=== PATIENT | female | born 2000 | race Hispanic/Latino ===

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

== ENCOUNTER 2019-09-29 21:40 | Emergency (ER) | payer OTHER ==
[2019-09-29 22:19] LABS: Absolute Lymphocytes (CBC) 2.1 K/uL (0.7-4.9); Basophils % 0.4 % (0-1.3); Hematocrit 36.3 % (36.0-45.0); Lymphocytes % 13.2 % (15.3-44.8); MPV 10.8 fL (7.6-11.3); RBC Red Blood Cell Count 3.88 M/uL (3.86-4.86)
[2019-09-29 22:30] LABS: ALT/SGPT 32 U/L (12-78); AST/SGOT 30 U/L (15-37); Albumin 3.9 g/dL (3.4-5.0); Alkaline Phosphatase 79 U/L (45-117); BUN Blood Urea Nitrogen 13 mg/dL (7-18); Bicarbonate 26 mmol/L (21-32); Bilirubin Direct 0.2 mg/dL (0-0.2); Bilirubin Total 0.7 mg/dL (0.2-1.0); Glucose Level 106 mg/dL (74-106); Lipase 66 U/L (73-393); Potassium 3.3 mmol/L (3.5-5.1); Protein, Total 7.3 g/dL (6.4-8.2); Sodium Level 137 mmol/L (136-145)
[2019-09-29 22:45] LABS: Urine Blood NEGATIVE (NEG); Urine Glucose NEGATIVE (NEG); Urine Protein NEGATIVE (NEG); Urine pH 8.5 (5.0-7.0)
[2019-09-29] MEDS ORDERED: ONDANSETRON 4 MG/2 ML VIAL ONE (23:42)
[2019-09-29] MEDS ORDERED: MORPHINE 4 MG/ML SYR ONE (23:42)
--- NOTE | 2019-09-30 02:34 | EDPHYS ---
Physician Documentation [facility] Name: Linnea Perales Age: 19 yrs Sex: Female : 2000 Arrival Date: 09/29/2019 Time: 21:46 Bed 14 Private MD: ED Physician Lester Ambrose HPI: 09/30 02:13 This 19 yrs old Female presents to ER via Wheelchair with complaints of tw4 Abdominal Pain. 02:13 The patient presents with abdominal pain. The patient presents with abdominal pain tw4 right lower quadrant. 02:23 Onset: The symptoms/episode began/occurred 3 day(s) ago. The symptoms do not radiate. tw4 Associated signs and symptoms: Pertinent positives: nausea. The symptoms are described as sharp. Modifying factors: The symptoms are alleviated by remaining still, the symptoms are aggravated by movement, pressure. Severity of pain: At its worst the pain was moderate in the emergency department the pain is unchanged. The patient has not experienced similar symptoms in the past. 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 - Social history:: Smoking status: Patient uses tobacco products, denies chronic smoking, but will smoke occasionally. - Ebola Screening: : No symptoms or risks identified at this time. ROS: 09/30 02:23 Constitutional: Negative for fever, chills, and weight loss, Eyes: Negative for injury, tw4 pain, redness, and discharge, Cardiovascular: Negative for chest pain, palpitations, and edema, Respiratory: Negative for shortness of breath, cough, wheezing, and pleuritic chest pain. Back: Negative for injury and pain, MS/Extremity: Negative for injury and deformity, Skin: Negative for injury, rash, and discoloration, Neuro: Negative for headache, weakness, numbness, tingling, and seizure. Abdomen/GI: Positive for abdominal pain, nausea, Negative for vomiting, diarrhea, constipation, dysphagia, hematemesis, black/tarry stool, rectal pain, rectal bleeding. Exam: 02:23 Constitutional: This is a well developed, well nourished patient who is awake, alert, tw4 and in no acute distress. Head/Face: Normocephalic, atraumatic. Chest/axilla: Normal chest wall appearance and motion. Nontender with no deformity. No lesions are appreciated. Cardiovascular: Regular rate and rhythm with a normal S1 and S2. No gallops, murmurs, or rubs. Normal PMI, no JVD. No pulse deficits. Respiratory: Lungs have equal breath sounds bilaterally, clear to auscultation and percussion. No rales, rhonchi or wheezes noted. No increased work of breathing, no retractions or nasal flaring. Skin: Warm, dry with normal turgor. Normal color with no rashes, no lesions, and no evidence of cellulitis. MS/ Extremity: Pulses equal, no cyanosis. Neurovascular intact. Full, normal range of motion. Neuro: Awake and alert, GCS 15, oriented to person, place, time, and situation. Cranial nerves II-XII grossly intact. Motor strength 5/5 in all extremities. Sensory grossly intact. Cerebellar exam normal. Normal gait. 02:23 Abdomen/GI: Inspection: abdomen appears normal, Bowel sounds: diminished, Palpation: moderate abdominal tenderness, in the right lower quadrant. Vital Signs: 09/29 21:50 BP 106 / 70; Pulse 93; Resp 20 S; Temp 98.4(O); Pulse Ox 100% on R/A; Weight 37.65 kg cc3 (R); Height 4 ft. 9 in. (144.78 cm) (R); Pain 10/10; 22:25 BP 106 / 77; Pulse 94; Resp 18 S; Pulse Ox 100% on R/A; cc3 23:15 BP 100 / 63; Pulse 106; Resp 19 S; Pulse Ox 99% on R/A; cc3 09/30 00:00 BP 103 / 58; Pulse 109; Resp 20 S; Pulse Ox 98% on R/A; cc3 00:30 BP 100 / 64; Pulse 110; Resp 20 S; Pulse Ox 98% on R/A; Pain 7/10; cc3 01:15 BP 101 / 58; Pulse 107; Resp 20 S; Pulse Ox 98% on R/A; cc3 02:07 BP 108 / 56; Pulse 101; Resp 18 S; Pulse Ox 98% on R/A; cc3 02:40 BP 105 / 57; Pulse 99; Resp 19 S; Pulse Ox 99% on R/A; Pain 3/10; cc3 09/29 21:50 Body Mass Index 17.96 (37.65 kg, 144.78 cm) cc3 MDM: 09/29 21:51 Patient medically screened. tw4 09/30 02:23 Differential diagnosis: appendicitis, Ectopic , GI Bleed, Hepatitis, tw4 pancreatitis, Pyelonephritis, Ureterolithiasis, urinary tract infection. Data reviewed: vital signs, nurses notes. Data reviewed: lab test result(s), CBC, white blood cell count, hemoglobin, hematocrit, platelets, electrolytes, sodium, potassium, chloride, serum bicarbonate, BUN, creatinine, serum glucose, hepatic panel. Data interpreted: Pulse oximetry: Interpretation: normal. Medication response: morphine relieved the patient's pain. Symptoms have resolved. Response to treatment: the patient's symptoms have markedly improved after treatment, and as a result, I will discharge patient. Special discussion: Based on the patient's Hx, exam, and Dx evaluation, there is no indication for emergent surgery or inpatient Tx. It is understood by the patient/guardian that if the Sx's persist or worsen they need to return immediately for re-evaluation. I discussed with the patient/guardian in detail that at this point there is no indication for admission to the hospital. It is understood, however, that if the symptoms persist or worsen the patient needs to return immediately for re-evaluation. 02:34 Data reviewed: radiologic studies, CT scan. Counseling: I had a detailed discussion tw4 with the patient and/or guardian regarding: the historical points, exam findings, and any diagnostic results supporting the discharge/admit diagnosis, lab results, radiology results. 09/29 21:51 Order name: Basic Metabolic Panel; Complete Time: 23:37 tw4 09/29 23:38 Interpretation: Normal except: K 3.3. tw4 09/29 21:51 Order name: CBC with Diff; Complete Time: 23:37 tw4 09/29 23:38 Interpretation: Normal except: WBC 15.5; PAULINO% 79.8; LYM% 13.2; NEUT A 12.4. tw4 09/29 21:51 Order name: Creatinine for Radiology; Complete Time: 23:37 tw4 09/29 23:38 Interpretation: Within normal limits: CRE 0.75. tw4 09/29 21:51 Order name: Hepatic Function; Complete Time: 23:37 tw4 09/29 23:39 Interpretation: Within normal limits. tw4 09/29 21:51 Order name: Lipase; Complete Time: 23:37 tw4 09/29 23:38 Interpretation: Normal except: LIP 66. 4 09/29 21:51 Order name: IV Saline Lock; Complete Time: 22:14 tw4 09/29 21:51 Order name: Labs collected and sent; Complete Time: 22:15 tw4 09/29 22:18 Order name: Urine --Ancillary (enter results); Complete Time: 23:37 4 09/29 22:18 Order name: Urine Dipstick--Ancillary (enter results); Complete Time: 23:37 4 09/29 23:38 Interpretation: Normal except: UPH 8.5; UESTR TRACE. 4 09/29 23:37 Order name: CT Abd/Pelvis - IV Contrast Only 4 09/29 21:51 Order name: Urine Dipstick-Ancillary (obtain specimen); Complete Time: 22:15 tw4 09/29 21:51 Order name: Urine Test (obtain specimen); Complete Time: 22:15 tw4 Administered Medications: 09/29 23:40 Drug: morphine 4 mg {Note: RASS 0.} Route: IVP; Site: right antecubital; cc3 09/30 00:30 Follow up: Response: No adverse reaction; Pain is decreased; RASS: Alert and Calm (0) 3 09/29 23:45 Drug: Zofran 4 mg Route: IVP; Site: right antecubital; cc3 09/30 00:30 Follow up: Response: No adverse reaction; Nausea is decreased cc3 Disposition: 09/30/19 02:33 Discharged to Home. Impression: Abdominal pain etoilogy unknown. - Condition is Stable. - Discharge Instructions: Abdominal Pain, Adult. - Prescriptions for Ibuprofen 800 mg Oral Tablet - take 1 tablet by ORAL route every 8 hours As needed take with food; 30 tablet. - Medication Reconciliation Form, Thank You Letter, Antibiotic Education, Prescription Opioid Use, Work release form form. - Follow up: Private Physician; When: Upon discharge from the Emergency Department; Reason: Recheck today's complaints, Continuance of care. - Problem is new. - Symptoms have improved. Signatures: Dispatcher [employer] [facility] Lester Ambrose MD MD tw4 Ayana Colon cc3 Corrections: (The following items were deleted from the chart) 09/29 22:19 22:16 Urine Microscopic Only ordered. [facility] 09/30 03:04 02:33 09/30/2019 02:33 Discharged to Home. Impression: Abdominal pain etoilogy unknown. cc3 Condition is Stable. Forms are Medication Reconciliation Form, Thank You Letter, Antibiotic Education, Prescription Opioid Use. Follow up: Private Physician; When: Upon discharge from the Emergency Department; Reason: Recheck today's complaints, Continuance of care. Problem is new. Symptoms have improved. tw4
--- NOTE | 2019-09-30 02:34 | ER ---
Nurse's Notes [facility] Name: Linnea Perales Age: 19 yrs Sex: Female : 2000 Arrival Date: 09/29/2019 Time: 21:46 Bed 14 Private MD: Diagnosis: Abdominal pain etoilogy unknown Presentation: 09/29 21:50 Presenting complaint: Patient states: "I've been having pain on my right lower abdomen cc3 since 3 days now and I feel nauseated. Transition of care: patient was not received from another setting of care. Onset of symptoms was September 26, 2019. Risk Assessment: Do you want to hurt yourself or someone else? Patient reports no desire to harm self or others. Initial Sepsis Screen: Does the patient meet any 2 criteria? HR > 90 bpm. No. Patient's initial sepsis screen is negative. Does the patient have a suspected source of infection? Yes: Acute abdominal pain. Care prior to arrival: None. 21:50 Method Of Arrival: Wheelchair cc3 21:50 Acuity: NORMA 3 cc3 Triage Assessment: 21:50 General: Appears in no apparent distress. uncomfortable, slender, Behavior is calm, cc3 cooperative, appropriate for age. Pain: Complains of pain in right lower quadrant Pain currently is 10 out of 10 on a pain scale. Quality of pain is described as aching, Pain began 2-3 days ago. EENT: No signs and/or symptoms were reported regarding the EENT system. Neuro: Level of Consciousness is awake, alert, obeys commands, Oriented to person, place, time, situation, Appropriate for age. Cardiovascular: Denies chest pain, Heart tones S1 S2 present Capillary refill < 3 seconds in bilateral fingers Patient's skin is warm and dry. Respiratory: Airway is patent Respiratory effort is even, unlabored, Respiratory pattern is regular, symmetrical. GI: Abdomen is flat, Bowel sounds present X 4 quads. Abd is soft X 4 quads Abdomen is tender to palpation in right lower quadrant, epigastric. : No signs and/or symptoms were reported regarding the genitourinary system. Derm: Skin is intact, is healthy with good turgor, Skin is pink, warm \\T\\ dry. normal. Musculoskeletal: Circulation, motion, and sensation intact. Range of motion: intact in all extremities. INSTRUCTIONAL INTERVENTIONIST: 21:50 LMP ended this weekend as per patient cc3 Historical: - Allergies: 21:50 No Known Allergies; cc3 - PMHx: 21:50 UTI; Ovarian cyst; cc3 - PSHx: 21:50 None; cc3 - Immunization history:: Adult Immunizations not up to date. - Social history:: Smoking status: Patient uses tobacco products, denies chronic smoking, but will smoke occasionally. - Ebola Screening: : No symptoms or risks identified at this time. Screenin:50 Abuse screen: Denies threats or abuse. Denies injuries from another. Nutritional cc3 screening: No deficits noted. Tuberculosis screening: No symptoms or risk factors identified. Fall Risk Ambulatory Aid- None/Bed Rest/Nurse Assist (0 pts). Gait- Normal/Bed Rest/Wheelchair (0 pts) Mental Status- Oriented to own ability (0 pts). Assessment: 21:50 General: see triage assessment. cc3 22:18 Reassessment: Patient appears in no apparent distress at this time. Patient and/or cc3 family updated on plan of care and expected duration. Pain level reassessed. Patient is alert, oriented x 3, equal unlabored respirations, skin warm/dry/pink. 23:20 Reassessment: Patient appears in no apparent distress at this time. Patient and/or cc3 family updated on plan of care and expected duration. Pain level reassessed. Patient is alert, oriented x 3, equal unlabored respirations, skin warm/dry/pink. 09/30 00:00 Reassessment: Patient appears in no apparent distress at this time. Patient and/or cc3 family updated on plan of care and expected duration. Pain level reassessed. Patient is alert, oriented x 3, equal unlabored respirations, skin warm/dry/pink. Patient taken to CT scan department by stretcher by the oil burner technician. 00:22 Reassessment: Patient appears in no apparent distress at this time. Patient and/or cc3 family updated on plan of care and expected duration. Pain level reassessed. Patient is alert, oriented x 3, equal unlabored respirations, skin warm/dry/pink. Patient came back from CT scan department, awaiting result. Patient states feeling better. Patient states symptoms have improved. 01:18 Reassessment: Patient appears in no apparent distress at this time. Patient and/or cc3 family updated on plan of care and expected duration. Pain level reassessed. Patient is alert, oriented x 3, equal unlabored respirations, skin warm/dry/pink. 02:06 Reassessment: Patient appears in no apparent distress at this time. Patient and/or cc3 family updated on plan of care and expected duration. Pain level reassessed. Patient is alert, oriented x 3, equal unlabored respirations, skin warm/dry/pink. 02:22 Reassessment: Followed up CTscan result and as per ground control approach technician Bakari he faxed cc3 it already an hour ago, Dr. Ambrose said he didn't receive any result. Informed collections technician Bakari to fax it again and he said he will. 02:45 Reassessment: Patient appears in no apparent distress at this time. Patient and/or cc3 family updated on plan of care and expected duration. Pain level reassessed. Patient is alert, oriented x 3, equal unlabored respirations, skin warm/dry/pink. Dr. Ambrose discharged the patient home with prescription given. IV cannula removed and patient left ER vitally stable and ambulatory with her mother. No valuables left in the patient's room. Patient states feeling better. Patient states symptoms have improved. Vital Signs: 09/29 21:50 BP 106 / 70; Pulse 93; Resp 20 S; Temp 98.4(O); Pulse Ox 100% on R/A; Weight 37.65 kg cc3 (R); Height 4 ft. 9 in. (144.78 cm) (R); Pain 10/10; 22:25 BP 106 / 77; Pulse 94; Resp 18 S; Pulse Ox 100% on R/A; cc3 23:15 BP 100 / 63; Pulse 106; Resp 19 S; Pulse Ox 99% on R/A; cc3 09/30 00:00 BP 103 / 58; Pulse 109; Resp 20 S; Pulse Ox 98% on R/A; cc3 00:30 BP 100 / 64; Pulse 110; Resp 20 S; Pulse Ox 98% on R/A; Pain 7/10; cc3 01:15 BP 101 / 58; Pulse 107; Resp 20 S; Pulse Ox 98% on R/A; cc3 02:07 BP 108 / 56; Pulse 101; Resp 18 S; Pulse Ox 98% on R/A; cc3 02:40 BP 105 / 57; Pulse 99; Resp 19 S; Pulse Ox 99% on R/A; Pain 3/10; cc3 09/29 21:50 Body Mass Index 17.96 (37.65 kg, 144.78 cm) cc3 ED Course: 09/29 21:46 Patient arrived in ED. cf2 21:50 Patient has correct armband on for positive identification. Placed in gown. Bed in low cc3 position. Call light in reach. Side rails up X2. Pulse ox on. NIBP on. 21:50 Arm band placed on right wrist. Patient notified of wait time. cc3 21:51 Lester Ambrose MD is Attending Physician. tw4 21:59 Ayana Colon is Primary Nurse. cc3 22:10 Triage completed. cc3 22:15 Lipase Sent. ds4 22:15 Hepatic Function Sent. ds4 22:15 Creatinine for Radiology Sent. ds4 22:15 CBC with Diff Sent. ds4 22:15 Basic Metabolic Panel Sent. ds4 22:15 Inserted saline lock: 20 gauge in right antecubital area, using aseptic technique. cc3 Blood collected. inserted by pharmacy technician instructor Krunal. 22:19 Urine Dipstick--Ancillary (enter results) Sent. ds4 22:19 Urine --Ancillary (enter results) Sent. ds4 09/30 00:26 CT completed. Patient tolerated procedure well. Patient moved to CT via stretcher. eh Patient moved back from CT. 00:32 CT Abd/Pelvis - IV Contrast Only In Process Unspecified. EDMS 02:45 No provider procedures requiring assistance completed. IV discontinued, intact, cc3 bleeding controlled, No redness/swelling at site. Pressure dressing applied. Administered Medications: 09/29 23:40 Drug: morphine 4 mg {Note: RASS 0.} Route: IVP; Site: right antecubital; cc3 09/30 00:30 Follow up: Response: No adverse reaction; Pain is decreased; RASS: Alert and Calm (0) cc3 09/29 23:45 Drug: Zofran 4 mg Route: IVP; Site: right antecubital; cc3 09/30 00:30 Follow up: Response: No adverse reaction; Nausea is decreased cc3 Outcome: 02:33 Discharge ordered by . tw4 02:45 Discharged to home via wheelchair, with family. cc3 02:45 Condition: stable 02:45 Discharge instructions given to patient, family, Instructed on discharge instructions, follow up and referral plans. medication usage, Demonstrated understanding of instructions, follow-up care, medications. 03:04 Patient left the ED. cc3 Signatures: Dispatcher [employer] EDMS Ryan Lynch jayesh Krunal Howell ds4 Lester Ambrose MD MD tw4 Ayana Colon cc3 Shakeel Chaparro cf2 Corrections: (The following items were deleted from the chart) 09/29 22:19 22:19 Urine Microscopic Only drawn and sent. ds4 EDMS 09/30 00:39 00:22 Reassessment: Patient appears in no apparent distress at this time. Patient cc3 and/or family updated on plan of care and expected duration. Pain level reassessed. Patient is alert, oriented x 3, equal unlabored respirations, skin warm/dry/pink. Patient came back from CT scan department, awaiting result. cc3 03:02 02:45 Reassessment: Patient appears in no apparent distress at this time. Patient cc3 and/or family updated on plan of care and expected duration. Pain level reassessed. Patient is alert, oriented x 3, equal unlabored respirations, skin warm/dry/pink. Dr. Ambrose discharged the patient home with prescription given. IV cannula removed and patient left ER vitally stable by wheelchair escorted by me and the patient's mother. No valuables left in the patient's room. Patient states feeling better. Patient states symptoms have improved. cc3
[2019-09-30 03:16] VITALS: TEMP 98.4
[2019-09-30 03:24] VITALS: BP 105/57; O2SAT 99
--- NOTE | 2019-09-30 11:28 | RAD REPORT ---
EXAM DESCRIPTION: CT - Abdomen Pelvis W Contrast - 09/30/2019 4:15 am CLINICAL HISTORY: RLQ PAIN;Abd pain COMPARISON: None. TECHNIQUE: CT ABDOMEN PELVIS WITH IV CONTRAST on 09/29/2019 11:37 PM CDT This exam was performed according to our departmental dose-optimization program, which includes autom ated exposure control, adjustment of the mA and/or kV according to patient size and/or use of iterati ve reconstruction technique. FINDINGS: Lower lungs are clear. Abdomen: The liver is normal in appearance. There is no biliary dilatation. The gallbladder is normal in appearance. The pancreas and spleen are normal in appearance. The adrenal glands and kidneys are unremarkable. Abdominal aorta is normal in course and caliber without aneurysm. There is no free air. There is no r etroperitoneal adenopathy. Pelvis: There is moderate stool throughout colon. Urinary bladder is unremarkable. There is no free f luid. Uterus is normal in size. Appendix is normal. Skeleton: There are no acute osseous findings. No suspicious bony lesions. IMPRESSION: No definite acute inflammatory process. Electronically signed by: Francisco J Wilson MD 09/30/2019 12:41 AM CDT Due to temporary technical issues with the PACS/Fluency reporting system, reports are being signed by the in house radiologist as a courtesy to ensure prompt reporting. The interpreting radiologist is lion felton responsible for the content of the report.
== END 2019-09-30 03:04 | disposition home or self-care (01) ==
LOC: ER 21:40
DX: R10.9 Unspecified abdominal pain (principal); Z72.0 Tobacco use
CPT/HCPCS: 85025; 80048; 36415; 81025; 80076; 81003; 83690; 74177; 96375; 96374; 99284; Q9967; J2405